=== PATIENT | female | born 1950 | race Caucasian/White ===

== ENCOUNTER 2018-02-14 01:10 | Inpatient (IN) | payer OTHER, MEDICARE ==
[~2018-02-14] VITALS: Ht 172.7 cm; Wt 108.9 kg
[~2018-02-14 01:10] MED LIST: ATORVASTATIN CA20 M1 PO; CALTRATE 600 +1 EACH PO; FERROUS SULFAT325 M3 PO; FISH OIL 1,0001 EACH PO; FOLIC ACID1 M1 PO; RANITIDINE HCL150 MG PO; TRAMADOL HCL50 M1 PO; VITAMIN D250000 UNIT PO; ZESTORETIC 20-1 EACH PO
--- NOTE | 2018-02-14 11:27 | Admission Core Measures ---
Acute Coronary Syndrome (CM) ACS Core Measures Acute Coronary Syndrome Diagnosis No Congestive Heart Failure (NEW) CHF Core Measures Congestive Heart Failure Diagnosis No Cerebrovascular Accident (NEW) CVA Core Measures CVA/TIA Diagnosis No Venous Thromboembolism VTE Core Kenzie (View Protocol) VTE Risk Factors Surgery No Mechanical VTE Prophylaxis d/t N/A MechProphylax Ordered No VTE Pharm Prophylaxis d/t NA PharmProphylax ordered Problem List As ranked by this Provider includes Assessment & Plan 1. Unilateral primary osteoarthritis, right hip HOME MEDS Home Med List Atorvastatin Calcium 20 MG TABLET 1 TAB PO DAILY CHOLESTEROL (Reported) Calcium Carbonate/Vitamin D3 (Caltrate 600 + D Tablet) 600 MG-800 TABLET 1 TAB PO DAILY SUPPLEMENT (Reported) Ergocalciferol (Vitamin D2) (Vitamin D2) 50,000 UNIT CAPSULE 1 CAP PO QW SUPPLEMENT (Reported) Ergocalciferol (Vitamin D2) (Vitamin D2) 50,000 UNIT CAPSULE 1 CAP PO QW SUPPLEMENT (Reported) Ferrous Sulfate 325 MG (65 MG IRON) TABLET 1 TAB PO DAILY SUPPLEMENT ( Reported) Folic Acid 1 MG TABLET 1 TAB PO DAILY SUPPLEMENT (Reported) [place]-3 Fatty Acids/Fish Oil (Fish Oil 1,000 MG Capsule) (Unknown Strength) CAPSULE (Unknown Dose) PO AD SUPPLEMENT (Reported) Ranitidine (Ranitidine HCl) 150 MG TABLET 1 TAB PO PRN REFLUX (Reported) Tramadol HCl 50 MG TABLET 1 TAB PO BIDP PRN pain (Reported) Zestoretic (Zestoretic 20-12.5 MG Tablet) 20 MG-12.5 MG TABLET 1 TAB PO DAILY htn (Reported)
[2018-02-14] MEDS ORDERED: DILAUDID2 M1 PO (11:38)
[2018-02-14] MEDS ORDERED: MIRALAX17 G1 PO (11:38)
[2018-02-14] MEDS ORDERED: ASPIRIN EC325 M2 PO (11:38)
[2018-02-14] MEDS ORDERED: COLACE100 M1 PO (11:38)
--- NOTE | 2018-02-14 11:41 | Patient Discharge Instructions ---
Discharge Instructions General Discharge Information You were seen/treated for: Right hip pain related to unilateral primary osteoarthritis You had these procedures: Right total hip replacement Watch for these problems: Increasing pain despite the use of pain medication Increasing redness, warmth or swelling Drainage of any type from incision Inability to bear weight on operative leg Persistent nausea and vomiting Fever greater than 101.5 degrees Do not soak the wound: Yes No bath, but you may shower: Yes Other wound care: Please keep wound clean and dry. No ointments or lotions of any type on or near incision at any time. No exceptions. Your dressing will be changed by your nurse on the second day after your surgery. Daily dry dressing changes are recommended each day thereafter. Do not soak your wound in a bath at any time until otherwise indicated by your surgeon. You may shower, please dry wound immediately after shower with a clean towel. Special Instructions: Aspirin: You are taking this medication to help prevent blood clot formation. Please take with food to protect your stomach lining. Please take as directed. Constipation: Pain medication can cause constipation. Dr. Santos has recommended that you take Colace and miralax each day. You may discontinue this medication if you develop loose stool or diarrhea. If you wish to continue this medication, it is available over the counter. If you are unable to move your bowels after several days, if you are unable to pass gas and are developing bloating, nausea, or vomiting as a result, please contact your doctor. Diet Continue normal diet: Yes Recommended Diet: Regular Acute Coronary Syndrome Inclusion Criteria At DC or during hospital stay patient has or had the following: ACS DIAGNOSIS No Discharge Core Measures Meds if any: Prescribed or Continued at Discharge Meds if any: NOT Prescribed or Continued at Discharge Congestive Heart Failure Inclusion Criteria At DC or during hospital stay patient has or had the following: CHF DIAGNOSIS No Discharge Core Measures Meds if any: Prescribed or Continued at Discharge Meds if any: NOT Prescribed or Continued at Discharge Cerebrovascular accident Inclusion Criteria At DC or during hospital stay patient has or had the following: CVA/TIA Diagnosis No Discharge Core Measures Meds if any: Prescribed or Continued at Discharge Meds if any: NOT Prescribed or Continued at Discharge Venous thromboembolism Inclusion Criteria VTE Diagnosis No VTE Type NONE VTE Confirmed by (Test) NONE Discharge Core Measures - Per Current guidelines, there needs to be overlap - treatment for the first 5 days of Warfarin therapy. - If discharged on Warfarin prior to 5 days of - overlap therapy, the patient will need to be - assessed for post discharge needs including - *Post discharge parental anticoagulation - *Warfarin and/or parental anticoagulation education - *Follow up date to check INR post discharge At least 5 days overlap therapy as Inpatient No Meds if any: Prescribed or Continued at Discharge Note: Overlap Therapy is Warfarin and Anticoagulant Meds if any: NOT Prescribed or Continued at Discharge
--- NOTE | 2018-02-14 11:43 | Surgical Discharge Summary ---
Visit Information Visit Dates Admission Date: 02/14/18 Discharge Date: 02/16/18 History of Present Illness Chief Complaint: Right hip pain related to unilateral primary osteoarthritis Medical History Isolation History: Standard Surgical History Pertinent Surgical History: non-contributory Review of Systems: See H&P Hospital Course Course Attending Physician: Andrew Santos MD Primary Care Physician: Adrianne Contreras APRN Hospital Course: Patient was admitted to the hospital for an elective total joint replacement. The procedure was tolerated well and patient was transferred to a general surgical floor. Diet was advanced and tolerated, and the patient voided spontaneously. The patient was evaluated and treated by physical therapy. At the time of hospital discharge, the vital signs were stable, neurovascular status was intact, and pain was controlled with the use of oral pain medications. Allergies: Coded Allergies: No Known Allergies (02/11/18) Disposition Summary Disposition Principal Diagnosis: Unilateral primary osteoarthritis right hip Additional Diagnosis: None Discharge Disposition: home health services Discharge Instructions General Discharge Information Code Status: Full Code Patient's Diet: Regular, advance as tolerated Patient's Activity: WBAT Follow-Up Instructions/Appts: Follow up with Dr. Santos in 6 weeks from date of surgery. Please call his office to arrange and/or confirm this appointment. Medications at Discharge Discharge Medications: Stop taking the following medications: Tramadol HCl (Tramadol HCl) 50 MG TABLET ORAL 2 x Daily as needed as needed for pain Continue taking these medications: Zestoretic (Zestoretic 20-12.5 MG Tablet) 20 MG-12.5 MG TABLET 1 Tablet ORAL DAILY Atorvastatin Calcium (Atorvastatin Calcium) 20 MG TABLET 1 Tablet ORAL DAILY Comments: Last Taken:02/15/18 Time:18:25 PM Calcium Carbonate/Vitamin D3 (Caltrate 600 + D Tablet) 600 MG-800 TABLET 1 Tablet ORAL DAILY Comments: NOT GIVEN IN HOSPITAL Ferrous Sulfate (Ferrous Sulfate) 325 MG (65 MG IRON) TABLET 1 Tablet ORAL DAILY Comments: NOT GIVEN IN HOSPITAL Ranitidine (Ranitidine HCl) 150 MG TABLET 1 Tablet ORAL NEEDED Comments: Last Taken:02/16/18 Time:8:21 AM PEPCID GIVEN IN HOSPITAL Folic Acid (Folic Acid) 1 MG TABLET 1 Tablet ORAL DAILY Comments: NOT GIVEN IN HOSPITAL [place]-3 Fatty Acids/Fish Oil (Fish Oil 1,000 MG Capsule) (Unknown Strength) CAPSULE Unknown Dose ORAL As Directed Comments: NOT GIVEN IN HOSPITAL Ergocalciferol (Vitamin D2) (Vitamin D2) 50,000 UNIT CAPSULE 1 Capsule ORAL Once a Week Comments: NOT GIVEN IN HOSPTIAL Ergocalciferol (Vitamin D2) (Vitamin D2) 50,000 UNIT CAPSULE 1 Capsule ORAL Once a Week Instructions: ON WEDNESDAY Comments: NOT GIVEN IN HOSPITAL Start taking the following new medications: Aspirin (Ecotrin*) 325 MG TABLET.DR 1 Tablet ORAL TWICE DAILY Qty = 60 No Refills Comments: Last Taken:02/16/18 Time:8:21 AM Docusate Sodium (Colace) 100 MG CAPSULE 1 Capsule ORAL TWICE DAILY Qty = 14 No Refills Instructions: DISCONTINUE USE IF YOU DEVELOP LOOSE STOOL OR DIARRHEA Comments: Last Taken:02/16/18 Time:8:21 AM Polyethylene Glycol 3350 (Miralax) 17 GRAM POWD.PACK 1 Packet ORAL DAILY Qty = 7 No Refills Instructions: dissolve in water, DISCONTINUE USE IF YOU DEVELOP LOOSE STOOL OR DIARRHEA Comments: Last Taken:02/16/18 Time:8:22 AM Tramadol HCl (Ultram) 50 MG TABLET 1 Tablet ORAL EVERY SIX HOURS NEEDED as needed for pain Qty = 30 No Refills
[2018-02-14 13:31] VITALS: BP 118/84
--- NOTE | 2018-02-14 13:31 | PN- Orthopedic ---
Subjective Subjective: Post op check Awake and alert post op No complaints at this time Pain is well controlled Has not ambulated yet Objective Vital Signs and I&Os VSS, afebrile Physical Exam: General: alert and oriented times three Chest: clear anteriorly bilaterally, RRR Abd: soft, good bs Ext: warm, no edema, good 5/5 [place] BLE, positive sensate Wd: dressed, dry, ice pack in place Current Medications: Current Medications Sig/Heron Start time Last Medication Dose Route Stop Time Status Admin Acetaminophen 1,000 MG Q6 02/14 1200 AC IV 02/15 0601 Acetaminophen 0 .STK-MED ONE 02/14 0753 DC PO Acetaminophen 975 MG ONCE 02/14 0000 DC PO 02/14 2359 Aspirin 325 MG BID 02/14 2100 AC PO Atorvastatin Calcium 20 MG 1700 02/14 1700 AC PO Cefazolin Sodium 2 GM IQ8 02/14 1600 AC N/A 1 UNIT IV 02/15 0029 Cefazolin Sodium 2,000 MG ONCE 02/14 0000 DC IV 02/14 2359 Dextrose/Sodium 1,000 ML .[id number] 02/14 1315 AC Chloride IV Docusate Sodium 100 MG BID 02/14 2100 AC PO Famotidine 20 MG DAILY 02/15 0900 AC PO Hydrochlorothiazide 12.5 MG DAILY 02/15 0900 AC PO Hydromorphone HCl 2 MG Q4P PRN 02/14 1315 AC PO Hydromorphone HCl 4 MG Q4P PRN 02/14 1315 AC PO Ketorolac 15 MG Q8P PRN 02/14 1315 AC Tromethamine IV 02/17 1310 Lisinopril 20 MG DAILY 02/15 0900 AC PO Morphine Sulfate 2 MG Q2P PRN 02/14 1315 AC IV Ondansetron HCl 4 MG Q6P PRN 02/14 1315 AC IV Oxycodone HCl 0 .STK-MED ONE 02/14 0753 DC PO Oxycodone HCl 10 MG ONCE 02/14 0000 DC PO 02/14 2359 Polyethylene Glycol 17 GM DAILY 02/15 0900 AC PO Promethazine HCl 12.5 MG Q6P PRN 02/14 1315 AC IV 02/21 1129 Assessment/Plan Assessment/Plan 67yo female s/p R THR PT - wbat pain management asa 325mg po bid for dvt ppx dc planning Core Measures Venous Thromboembolism VTE Risk Factors Surgery No Mechanical VTE Prophylaxis d/t N/A MechProphylax Ordered No VTE Pharm Prophylaxis d/t NA PharmProphylax ordered
--- NOTE | 2018-02-14 14:02 | RADIOLOGY REPORT ---
EXAMINATION: XR HIP, RIGHT CLINICAL INFORMATION: Status post hip arthroplasty COMPARISON: None TECHNIQUE: Two views of the right hip. FINDINGS: The femoral head prosthesis is well-positioned within the acetabular cup. The lateral version angle of the cup cannot be accurately measured on this AP view. However, the hardware appears to be in appropriate position, and anteversion of the cup is shown on the lateral view. The tip of the femoral stem is well positioned in the medullary cavity of the proximal femoral diaphysis and there is no periprosthetic fracture. There is postoperative soft tissue emphysema of the hip. IMPRESSION: The components of the hip arthroplasty the peritoneal be in satisfactory position. No acute periprosthetic fracture.
--- NOTE | 2018-02-14 14:45 | Operative Report ---
Operative/Inv Procedure Report Surgery Date: 02/14/18 Name of Procedure: Right total hip replacement Pre-Operative Diagnosis: Primary right hip DJD Post-Operative Diagnosis: Same Estimated Blood Loss: 250 Surgeon/Deputy Of Counter Intelligence: Tom STEWART,Andrew Hollis Anesthesia: block Operative/Procedure Note Note: Description of Procedure: The patient was taken to the operating room and positively identified. After induction of spinal anesthesia and administration of appropriate pre-operative antibiotics, the patient was positioned supine on the operating room table and all bony prominences were well padded. After performing a surgical timeout, the right lower extremity was prepped and draped in the usual sterile fashion. A direct anterior approach was made to the right hip. The incision was carried sharply through superficial soft tissues to the level of the fascia. Meticulous hemostasis was maintained with Bovie electocautery. The fascia over the tensor fascia michelle muscle was opened sharply and the interval between the TFL and the sartorius was entered bluntly taking care to stay lateral to the lateral femoral cutaneous nerve. Retractors were placed around the femoral neck and the pericapsular fat was identified. The ascending branches of the lateral femoral circumflex vessels were identified and carefully coagulated. The pericapsular fat and anterior capsule were then resected. A napkin ring osteotomy was performed and the femoral head was removed without difficulty. Attention was then turned to the acetabulum. After appropriate placement of retractors, the acetabulum was exposed. Soft tissue was cleaned from the acetabular margin and notch. Overhanging osteophytes were removed and the teardrop was exposed. The acetabulum was then sequentially reamed to accept a 56 mm Josee Tritanium hemispherical solid shell. This was impacted into place in the appropriate position and fitted with a 36 mm Trident X3 zero degree polyethylene insert. Attention was then turned to the femur. After performing the appropriate ligament releases, the proximal femur was exposed. It was then sequentially broached to accept a size 7 Josee Accolade II stem. This was trialed for leg length and stability. The trial component was removed and the final component was impacted into place. The trunnion was carefully cleaned and fit with a 36 mm, +0 Biolox delta ceramic femoral head. The hip was reduced and put through a full range of motion and found to be stable. The articular space was then irrigated with sterile saline. The periarticular soft tissues were infilitrated with Marcaine. The fascial layer was closed with interrupted #1 vicryl suture and the skin was re-approximated with interrupted 2 -0 vicryl. The skin was closed with a running 3-0 V-Lock suture. Steri-strips and a sterile dressing were applied. The patient was awakened and taken to the recovery room in satisfactory condition.
[2018-02-14 15:35] VITALS: BP 130/80
[2018-02-14 17:30] VITALS: BP 120/80
[2018-02-14 19:30] VITALS: BP 120/78
[2018-02-14 23:30] VITALS: BP 110/60
[2018-02-15] VITALS (10 sets, daily range): BP systolic 90–136; BP diastolic 50–72
[2018-02-15 08:26] LABS: ABSOLUTE BASOPHIL COUNT 0 /CUMM (0.0-0.2); ABSOLUTE EOSINOPHIL COUNT 0 /CUMM (0.0-0.7); ABSOLUTE GRANULOCYTE CT 3.8 /CUMM (1.4-6.5); ABSOLUTE LYMPH COUNT 1.3 /CUMM (1.2-3.4); ABSOLUTE MONOCYTE COUNT 0.5 /CUMM (0.10-0.60); BASOPHIL % 0.3 % (0.0-2.0); EOSINOPHIL % 0.6 % (0-5); GRANULOCYTE % 67.9 % (42.2-75.2); HEMATOCRIT 26.1 % (37-47); MEAN CORPUSCULAR HGB 29.9 PG (27.0-31.0); MEAN CORPUSCULAR HGB CONC 33.5 G/DL (33.0-37.0); MEAN CORPUSCULAR VOLUME 89.3 FL (81.0-99.0); MEAN PLATELET VOLUME 7.8 FL (7.4-10.4); PLATELET COUNT 250 /CUMM (130-400); RBC DISTRIBUTION WIDTH 13.5 % (11.5-14.5); RED BLOOD CELL CT 2.92 /CUMM (4.20-5.40); WHITE BLOOD CELL COUNT 5.6 /CUMM (4.8-10.8)
--- NOTE | 2018-02-15 09:05 | PN- Orthopedic ---
See Addendum Subjective Subjective: Patient reports postop pain in her right hip and heaviness in her right leg. She is tolerating a diet, denies any numbness, tingling, parathesias. Objective Vital Signs and I&Os Vital Signs Date Time Temp Pulse Resp B/P B/P Pulse O2 O2 Flow FiO2 Mean Ox Delivery Rate 02/15 0949 94 90/61 02/15 0949 94 90/61 02/15 0554 97.9 86 20 100/64 96 Room Air 02/15 0330 97.7 86 20 110/60 99 Room Air 02/14 2330 97.9 81 20 110/60 97 Room Air 02/14 1930 97.5 77 18 120/78 100 Room Air 02/14 1730 98.0 72 18 120/80 99 Room Air 02/14 1535 98.3 77 18 130/80 98 Room Air 02/14 1331 67 16 118/84 99 Room Air Room Air Intake & Output 02/15 1600 02/15 0800 02/15 0000 02/14 1600 02/14 0800 02/14 0000 Intake Total 600 225 400 Output Total 250 1900 Balance 350 -1675 400 Intake, IV 600 225 150 Intake, Oral 250 Output, Urine 250 1900 Patient 240 lb Weight Weight Reported by Patient Measurement Method Physical Exam: Gen - resting comfortably in nad Chest - S1S2, RRR Lungs - CTAB Ext - R hip dressing c/d/i, ice in place, moves all extremities, compartment soft, motor and sensory intact, baseline edema noted, no calf tenderness B/L Current Medications: Current Medications Sig/Heron Start time Last Medication Dose Route Stop Time Status Admin Acetaminophen 1,000 MG Q6H 02/14 2200 DC 02/15 IV 02/15 1001 1059 Acetaminophen 1,000 MG Q6 02/14 1200 DC 02/14 IV 02/15 0601 1600 Acetaminophen 975 MG ONCE 02/14 0000 DC PO 02/14 2359 Aspirin 325 MG BID 02/14 2100 AC 02/15 PO 0958 Atorvastatin Calcium 20 MG 1700 02/14 1700 AC PO Cefazolin Sodium 2 GM IQ8 02/14 1600 DC 02/14 N/A 1 UNIT IV 02/15 0029 2324 Cefazolin Sodium 2,000 MG ONCE 02/14 0000 DC IV 02/14 2359 Dextrose/Sodium 1,000 ML .[id number] 02/14 1315 AC 02/15 Chloride IV 0244 Docusate Sodium 100 MG BID 02/14 2100 AC 02/15 PO 0958 Famotidine 20 MG DAILY 02/15 900 AC 02/15 PO 0958 Hydrochlorothiazide 12.5 MG DAILY 02/15 09 AC PO Hydromorphone HCl 2 MG Q4P PRN 02/14 1315 AC PO Hydromorphone HCl 4 MG Q4P PRN 02/14 1315 AC 02/14 PO 1600 Ketorolac 15 MG Q8P PRN 02/14 1315 AC 02/15 Tromethamine IV 02/17 1310 0959 Lisinopril 20 MG DAILY 02/15 900 AC PO Morphine Sulfate 2 MG Q2P PRN 02/14 1315 AC 02/15 IV 0648 Ondansetron HCl 4 MG Q6P PRN 02/14 1315 AC IV Oxycodone HCl 10 MG ONCE 02/14 0000 DC PO 02/14 2359 Polyethylene Glycol 17 GM DAILY 02/15 09 AC 02/15 PO 0958 Promethazine HCl 12.5 MG Q6P PRN 02/14 1315 AC IV 02/21 1129 Sodium Chloride 500 ML BOLUS ONE 02/15 1015 DC 02/15 IV 02/15 1114 1011 Results Last 48 Hours of Labs: Laboratory Tests 02/15 06 Chemistry Sodium (137 - 145 mmol/L) 132 L Potassium (3.5 - 5.1 mmol/L) 4.3 Chloride (98 - 107 mmol/L) 97 L Carbon Dioxide (22 - 30 mmol/L) 26 Anion Gap (5 - 16) 10 BUN (7 - 17 mg/dL) 22 H Creatinine (0.5 - 1.0 mg/dL) 1.3 H Estimated GFR (>60 ml/min) 41 L BUN/Creatinine Ratio (7 - 25 %) 16.9 Hematology CBC w Diff NO MAN DIFF REQ WBC (4.8 - 10.8 /CUMM) 5.6 RBC (4.20 - 5.40 /CUMM) 2.92 L Hgb (12.0 - 16.0 G/DL) 8.7 L Hct (37 - 47 %) 26.1 L MCV (81.0 - 99.0 FL) 89.3 MCH (27.0 - 31.0 PG) 29.9 MCHC (33.0 - 37.0 G/DL) 33.5 RDW (11.5 - 14.5 %) 13.5 Plt Count (130 - 400 /CUMM) 250 MPV (7.4 - 10.4 FL) 7.8 Gran % (42.2 - 75.2 %) 67.9 Lymphocytes % (20.5 - 51.1 %) 22.6 Monocytes % (1.7 - 9.3 %) 8.6 Eosinophils % (0 - 5 %) 0.6 Basophils % (0.0 - 2.0 %) 0.3 Absolute Granulocytes (1.4 - 6.5 /CUMM) 3.8 Absolute Lymphocytes (1.2 - 3.4 /CUMM) 1.3 Absolute Monocytes (0.10 - 0.60 /CUMM) 0.5 Absolute Eosinophils (0.0 - 0.7 /CUMM) 0 Absolute Basophils (0.0 - 0.2 /CUMM) 0 Assessment/Plan Assessment/Plan 67 F POD 1 s/p R THR, brief episode of hypotension and dizziness OOB PT, WBAT Regular diet Pain regimen prn 500 nacl bolus for hypotension Monitor H&H, no indication for transfusion at this time Asa 325 bid Home meds on board GI ppx on board Bowel regimen on board Anticipate d/c in 1-2 days Core Measures Venous Thromboembolism VTE Risk Factors Surgery No Mechanical VTE Prophylaxis d/t N/A MechProphylax Ordered No VTE Pharm Prophylaxis d/t NA PharmProphylax ordered
[2018-02-16 05:57] VITALS: BP 122/82
--- NOTE | 2018-02-16 07:38 | PN- Orthopedic ---
Subjective Subjective: Patient feeling better today. Still feeling a little bit weak although improved. Blood pressure improved. Not lightheaded or dizzy. She states she is doing well walking around. She is drinking adequate amounts and voiding spontaneously Objective Vital Signs and I&Os Vital Signs Date Time Temp Pulse Resp B/P B/P Pulse O2 O2 Flow FiO2 Mean Ox Delivery Rate 02/16 557 97.4 86 20 122/82 100 Room Air 02/15 2127 98.0 98 18 136/72 100 02/15 1830 98.0 93 18 110/70 99 Room Air 02/15 1615 97.9 87 16 102/64 99 Room Air 02/15 1600 98.0 82 18 98/62 95 Room Air 02/15 1312 97.4 92 18 90/50 99 Room Air 02/15 1255 85 90/50 02/15 1010 97.8 90 18 112/60 100 Room Air 02/15 0949 94 90/61 02/15 0949 94 90/61 Intake & Output 02/16 0000 02/15 1600 02/15 0802/15 0000 02/14 1600 Intake Total 1370 1525 600 225 400 Output Total 250 800 974 785 6084 Balance -353 001 6178 350 -1675 400 Intake, Blood 300 Product Intake, IV 350 1125 600 225 150 Intake, Oral 720 400 250 Number 0 0 Bowel Movements Output, Urine 250 800 517 [id number] [id number] Patient 240 lb Weight Weight Reported by Patient Measurement Method Physical Exam: Well-developed well-nourished no apparent distress. HEENT: Atraumatic, extraocular motion intact Neck: Supple, no lymphadenopathy Respiratory: No respiratory distress Extremities: No edema RIGHT lower extremity hip dressing in place, Dressing clean dry and intact with minimal serous staining proximal aspect Incision without erythema Mild thigh swelling No signs of infection. Dressing change, dry sterile dressing applied No shortening or rotation Hip range of motion is limited and without unexpected pain Neurovascularly intact distally Bilateral calves are supple, nontender. Neuro: Alert and oriented x3 Psych: Mood affect normal, normal memory normal judgment. Skin: Warm and dry, no rash on exposed skin Results Last 48 Hours of Labs: Laboratory Tests 02/16 02/15 0621 0637 Chemistry Sodium (137 - 145 mmol/L) 132 L Potassium (3.5 - 5.1 mmol/L) 4.3 Chloride (98 - 107 mmol/L) 97 L Carbon Dioxide (22 - 30 mmol/L) 26 Anion Gap (5 - 16) 10 BUN (7 - 17 mg/dL) 22 H Creatinine (0.5 - 1.0 mg/dL) 1.3 H Estimated GFR (>60 ml/min) 41 L BUN/Creatinine Ratio (7 - 25 %) 16.9 Hematology CBC w Diff Pending NO MAN DIFF REQ WBC (4.8 - 10.8 /CUMM) Pending 5.6 RBC (4.20 - 5.40 /CUMM) Pending 2.92 L Hgb (12.0 - 16.0 G/DL) Pending 8.7 L Hct (37 - 47 %) Pending 26.1 L MCV (81.0 - 99.0 FL) Pending 89.3 MCH (27.0 - 31.0 PG) Pending 29.9 MCHC (33.0 - 37.0 G/DL) Pending 33.5 RDW (11.5 - 14.5 %) Pending 13.5 Plt Count (130 - 400 /CUMM) Pending 250 MPV (7.4 - 10.4 FL) Pending 7.8 Gran % (42.2 - 75.2 %) 67.9 Lymphocytes % (20.5 - 51.1 %) 22.6 Monocytes % (1.7 - 9.3 %) 8.6 Eosinophils % (0 - 5 %) 0.6 Basophils % (0.0 - 2.0 %) 0.3 Absolute Granulocytes (1.4 - 6.5 /CUMM) 3.8 Absolute Lymphocytes (1.2 - 3.4 /CUMM) 1.3 Absolute Monocytes (0.10 - 0.60 /CUMM) 0.5 Absolute Eosinophils (0.0 - 0.7 /CUMM) 0 Absolute Basophils (0.0 - 0.2 /CUMM) 0 Assessment/Plan Assessment/Plan Postop day #2 status post right total hip arthroplasty anterior approach. Pain medication as needed. Out of bed Physical therapy, weightbearing as tolerated DC IV fluids Regular diet Status post blood transfusion of 1 unit secondary to acute blood loss anemia postoperatively, follow a.m. complete blood count Aspirin for DVT prophylaxis ALPS for DVT prophylaxis Regular home meds Dressing change daily, dry sterile dressing, done today Disposition is home with VNA services versus ECF depending upon patient's comfort level as she lives alone at home and has stairs and performance with physical therapy Core Measures Venous Thromboembolism VTE Risk Factors Surgery No Mechanical VTE Prophylaxis d/t N/A MechProphylax Ordered No VTE Pharm Prophylaxis d/t NA PharmProphylax ordered
[2018-02-16 08:07] LABS: ABSOLUTE BASOPHIL COUNT 0 /CUMM (0.0-0.2); ABSOLUTE EOSINOPHIL COUNT 0.1 /CUMM (0.0-0.7); ABSOLUTE GRANULOCYTE CT 4.8 /CUMM (1.4-6.5); ABSOLUTE LYMPH COUNT 1.3 /CUMM (1.2-3.4); ABSOLUTE MONOCYTE COUNT 0.5 /CUMM (0.10-0.60); BASOPHIL % 0.3 % (0.0-2.0); EOSINOPHIL % 1.5 % (0-5); GRANULOCYTE % 70.9 % (42.2-75.2); HEMATOCRIT 27.8 % (37-47); MEAN CORPUSCULAR HGB 29.6 PG (27.0-31.0); MEAN CORPUSCULAR HGB CONC 33.3 G/DL (33.0-37.0); MEAN PLATELET VOLUME 7.9 FL (7.4-10.4); PLATELET COUNT 258 /CUMM (130-400); RBC DISTRIBUTION WIDTH 14.7 % (11.5-14.5); RED BLOOD CELL CT 3.13 /CUMM (4.20-5.40); WHITE BLOOD CELL COUNT 6.8 /CUMM (4.8-10.8)
[2018-02-16 08:22] VITALS: BP 128/72
[2018-02-16] MEDS ORDERED: ULTRAM50 M1 PO (10:42)
[2018-06-21] MEDS ORDERED: MULTIVITAMINS1 EAC9 PO (09:33)
[2018-06-22] MEDS ORDERED: PERCOCET 5-3251 EACH PO (13:10)
[2018-06-22] MEDS ORDERED: COLACE100 M1 PO (13:10)
[2018-06-22] MEDS ORDERED: MIRALAX17 G1 PO (13:10)
[2018-06-22] MEDS ORDERED: PRILOSEC OTC20 M1 PO (13:10)
[2018-06-22] MEDS ORDERED: ASPIRIN EC325 M2 PO (13:10)
[2018-06-24] MEDS ORDERED: OXYCODONE HCL10 M2 PO (09:15)
[2018-06-24] MEDS ORDERED: TYLENOL EXTRA500 M2 PO (09:15)
== END 2018-02-16 11:45 | disposition home health service (06) | DRG 470 ==
LOC: 2NB 01:10 → SDA 01:10 → ENRESERV 11:43 → ENTRNSPT 12:23 → EDTRNSPTSTS 12:27 → EDTRNSPT 12:27 → CMPTRNSPT 12:38 → 2NB 12:46 → ENPENDDIS 02-16 09:09 → ENTRNSPT 02-16 11:31 → EDTRNSPTSTS 02-16 11:40 → EDTRNSPT 02-16 11:40 → 2NB 02-16 11:45 → CMPTRNSPT 02-16 12:04
PROVIDERS: Nurse Practitioner; Physician Assistant Surgical
PROC: 0SR904A Replacement of Right Hip Joint with Ceramic on Polyethylene Synthetic Substitute, Uncemented, Open Approach (ICD-10-PCS; 2018-02-14)
PROC: 30233N1 Transfusion of Nonautologous Red Blood Cells into Peripheral Vein, Percutaneous Approach (ICD-10-PCS; principal; 2018-02-15)
DX: M16.11 Unilateral primary osteoarthritis, right hip (principal); N18.3 Chronic kidney disease, stage 3 (moderate); I12.9 Hypertensive chronic kidney disease with stage 1 through stage 4 chronic kidney disease, or unspecified chronic kidney disease; K21.9 Gastro-esophageal reflux disease without esophagitis; M48.00 Spinal stenosis, site unspecified; Z98.84 Bariatric surgery status; Z90.49 Acquired absence of other specified parts of digestive tract; I95.81 Postprocedural hypotension
CPT/HCPCS: 2NBP; 36415; 36592; 73502-RT; 82436; 86920; 88304; 97110-GO; 97116-GO; 97161-GP; 97530-GO; J0131; J0690; J0735; J1100; J2405; J2550; J3490; J7040; J7042; P9016